=== PATIENT | female | born 1965 | race Caucasian/White ===

== ENCOUNTER 2020-04-20 07:42 | Day surgery (SDC) | payer BC ==
[2020-04-14 16:55] LABS: BASOPHILS % (AUTO) 0.4 % (0-1); EOSINOPHILS # (AUTO) 0.2 X10'3 (0-0.9); EOSINOPHILS % (AUTO) 2.2 % (0-6); LYMPHOCYTES # (AUTO) 2.4 X10'3 (1.1-4.8); MEAN CORPUSCULAR HEMOGLOBIN 29.2 PG (27.0-31.0); MEAN CORPUSCULAR HGB CONC 33.7 g/dL (33.0-36.5); MEAN CORPUSCULAR VOLUME 86.5 FL (78-98); MEAN PLATELET VOLUME 8.4 FL (7.4-10.4); MONOCYTES # (AUTO) 0.7 X10'3 (0-0.9); MONOCYTES % (AUTO) 6.8 % (2-12); NEUTROPHILS # (AUTO) 6.4 X10'3 (1.8-7.7); NEUTROPHILS % (AUTO) 65.6 % (42-75); PRE OP HEMATOCRIT 42.8 % (35.0-45.0); PRE OP HEMOGLOBIN 14.5 g/dL (12.0-16.0); PRE OP PLATELET COUNT 294 X10'3 (140-440); RED BLOOD COUNT 4.95 X10'6 (4.20-5.60); RED CELL DISTRIBUTION WIDTH 13.2 % (11.5-14.5)
[2020-04-14 17:05] LABS: PRE OP PROTIME 10.7 SECONDS (9.0-12.0)
[2020-04-14 17:15] LABS: ALBUMIN 3.8 G/DL (3.4-5.0); ALKALINE PHOSPHATASE 102 IU/L (46-116); BLOOD UREA NITROGEN 19 MG/DL (7-18); BUN/CREATININE RATIO 24.7 (6.6-38.0); CHLORIDE 103 MMOL/L (99-107); CREATININE 0.77 MG/DL (0.40-0.90); PRE OP ALT 31 U/L (30-65); PRE OP ANION GAP 9 (8-16); PRE OP AST 21 U/L (10-37); PRE OP BILIRUB, TOTAL 0.3 MG/DL (0.0-1.0); PRE OP GLUCOSE 113 MG/DL (70-104); PRE OP POTASSIUM 3.9 MMOL/L (3.4-5.1); PRE OP SODIUM 141 MMOL/L (135-145); TOTAL CARBON DIOXIDE 29.5 MMOL/L (24-32); TOTAL PROTEIN 7.8 G/DL (6.4-8.2); eGFR 78 ML/MIN
[~2020-04-20] VITALS: Ht 166.4 cm; Wt 94.0 kg
[2020-04-20] VITALS (18 sets, daily range): BP systolic 93–151; BP diastolic 54–96
[~2020-04-20 07:42] MED LIST: ESTR0.5T28 PO; HYDROmorphone 1 mg/ml syringe IV PRN; HYDROmorphone inj. 0.5 MG/0.5 ML DISP.SYRIN IV PRN; IRBE1TAB31 PO; LEVO88TA7 PO; acetaminophen 325mg tablet PO ONE; acetaminophen 325mg tablet PO PRN; bisacodyl 10mg suppository rectal RC PRN; ceFAZolin 2gm in dextrose, iso 50 ML IV ONE; celeCOXIB 100mg capsule PO ONE; diphenhydrAMINE 25mg capsule PO PRN; famotidine 20mg tablet PO ONE; gabapentin 300mg capsule PO ONE; magnesium hydroxide 30ml (MOM) UD suspension PO PRN; metoclopramide 5 mg/ml inj IV ONE; ondansetron/PF 4mg/2ml inj IV PRN; oxyCODONE SR 10mg (sust. release) tab -2 tabs (20mg) PO ONE; oxyCODONE/APAP 10/325mg tablet PO PRN; ringers solution, lacted 1,000 ML IV SCH; scopolamine 1.5mg patch.TD72 TD ONE; tranexamic acid 1gm/0.7% sal. 100 ML IV ONE; vancomycin 1,500 MG in NS 300ml IV soln IV ONE
[2020-04-20] MEDS: gabapentin 300mg capsule PO SCH ×3 (08:00→22:35)
[2020-04-20] MEDS: multivitamins, therapeutics tablet PO SCH (08:00)
[2020-04-20] MEDS: levoTHYROXINE 88mcg tablet PO SCH (08:00)
[2020-04-20] MEDS: ascorbic acid 500mg tablet PO SCH ×2 (08:00→22:35)
[2020-04-20] MEDS: aspirin 325mg tablet PO SCH (08:30)
[2020-04-20] MEDS ORDERED: ROPIVAcaine inj 250 MG, ketorolac trometh inj. 30 MG, CloNIDine/PF inj 80 MCG, epiNEPHr... IU ONE ×5 (10:45)
[2020-04-20] MEDS ORDERED: ROPIVAcaine inj 250 MG, ketorolac tromethamine inj. 30 MG, CloNIDine/PF inj 80 MCG, epi... IU ONE ×5 (10:45)
[2020-04-20] MEDS ORDERED: MIDAZolam 1mg/ml 10ml vial ONE (11:09)
[2020-04-20] MEDS ORDERED: sevoflurane 250ml liquid IH ONE (11:17)
[2020-04-20] MEDS ORDERED: propofol inj 20 ML IV ONE ×2 (11:34)
[2020-04-20] MEDS ORDERED: vancomycin 1,000mg inj ONE (11:52)
[2020-04-20] MEDS ORDERED: morphine 2 MG/ML inj. syringe IV PRN (12:10)
[2020-04-20] MEDS ORDERED: morphine 4 MG/ML inj SYRINge IV PRN (12:10)
[2020-04-20] MEDS ORDERED: meperidine/PF 25mg/ml syringe IV PRN ×3 (12:10)
[2020-04-20] MEDS ORDERED: proCHLORperazine 10 MG/2 ml inj IV PRN (12:10)
[2020-04-20] MEDS ORDERED: ondansetron/PF 4mg/2ml inj IV PRN (12:10)
[2020-04-20] MEDS ORDERED: ringers solution, lacted 1,000 ML IV SCH (12:10)
[2020-04-20] MEDS ORDERED: ROPIVAcaine 0.2% (10 MG/5 ML) BOLUS INJECTION ADDCANAL PRN (12:10)
[2020-04-20] MEDS ORDERED: ROPIVAcaine 0.5% (5mg/ml) 30ml vial ONE (12:31)
--- NOTE | 2020-04-20 13:03 | NUR ---
Received from OR via BED, accompanied by Anesthesiologist DR PACHECO and report given by Anesthesiologist. PT DROWSY, DENIES PAIN, LEFT KNEE W/DRSG, ICE PACK, LEG WRAP, FLORY DRAIN CDI. BLANKET WARMER APPLIED FOR TEMP 35.9, PT NAUSEATED 4 MG ZOFRAN GIVEN. Addendum: 04/20/20 at 1342 by Jesenia Christina RN Amended: Links added.
[2020-04-20] MEDS: ROPIVAcaine 0.2%/PF PUMP/bolus 550 ML ADDCANAL SCH ×4 (13:56→22:40)
--- NOTE | 2020-04-20 14:23 | NUR ---
Report called to receiving nurse. Transferred via BED BY JEANNIE, 1 BAG OF Belongings SENT W/PT TO ROOM 346B. RECEIVING RN NOTIFIED OF PTS ARRIVAL. Special Issues communicated to receiving nurse. YES. Addendum: 04/20/20 at 1433 by Jesenia Christina RN Amended: Links added.
[2020-04-20] MEDS ORDERED: cefazolin/dext.iso 2gm/100ml 100 ML IV SCH (16:00)
[2020-04-20] MEDS ORDERED: tranexamic acid 1gm/0.7% sal. 100 ML IV ONE (16:10)
[2020-04-20] MEDS: potassium cl 20mEq in 1/2 NS 1,000 ML IV SCH ×3 (16:33→22:45)
--- NOTE | 2020-04-20 17:39 | NUR ---
Patient became nauseous after Dilaudid and requesting not to have it anymore. She told me that she likes [place] instead. I called Dr. Purnima Olsen about this, received order for [place] PRN (see eMAR)
[2020-04-20] MEDS ORDERED: HYDROcodone/acetaminophen 5mg/325mg tablet PO PRN ×2 (17:40→18:40)
[2020-04-20] MEDS ORDERED: HYDROcodone/acetaminophen 10/325mg tab PO PRN (17:40)
--- NOTE | 2020-04-20 17:42 | NUR ---
I called pharmacist to let them know that patient's bolus device for OnQ was not working when patient used it even though it worked previously as per patient report. Pharmacist said they will have to make another one
[2020-04-20] MEDS: ceFAZolin 2gm in dextrose, iso 50 ML IV SCH (17:52)
--- NOTE | 2020-04-20 18:27 | NUR ---
Problems reprioritized. Patient report given, questions answered & plan of care reviewed with Asa PIERCE.
--- NOTE | 2020-04-20 18:34 | NUR ---
unclamped On Q - running at 8. will attempt the bolus after pressure is released
[2020-04-20] MEDS: HYDROcodone/acetaminophen 10/325mg tab PO PRN (20:38)
[2020-04-20] MEDS ORDERED: sennosides 8.6mg tablet PO SCH (21:00)
--- NOTE | 2020-04-20 21:25 | NUR ---
bolus on OnQ is now working. norco given for pain. will continue to assess for pain needs
[2020-04-20] MEDS ORDERED: VANCOMYCIN 1,500MG inj. 1,500 MG in normal saline 500ml IV soln 500 ML IV SCH (22:00)
--- NOTE | 2020-04-20 22:28 | NUR ---
ambulated to with one assist. tolerated well. pain controlled
[2020-04-21] MEDS: HYDROcodone/acetaminophen 10/325mg tab PO PRN ×3 (00:36→08:49)
[2020-04-21] MEDS: ceFAZolin 2gm in dextrose, iso 50 ML IV SCH (01:29)
[2020-04-21 04:30] VITALS: BP 117/69
[2020-04-21 06:10] LABS: BASOPHILS % (AUTO) 0.3 % (0-1); EOSINOPHILS # (AUTO) 0.1 X10'3 (0-0.9); EOSINOPHILS % (AUTO) 0.5 % (0-6); HEMATOCRIT 33.5 % (35.0-45.0); HEMOGLOBIN 11.4 g/dl (12.0-16.0); LYMPHOCYTES # (AUTO) 1.6 X10'3 (1.1-4.8); LYMPHOCYTES % (AUTO) 11.9 % (21-51); MEAN CORPUSCULAR HEMOGLOBIN 29.5 PG (27.0-31.0); MEAN CORPUSCULAR HGB CONC 33.9 g/dL (33.0-36.5); MEAN PLATELET VOLUME 8.4 FL (7.4-10.4); MONOCYTES % (AUTO) 7.2 % (2-12); NEUTROPHILS # (AUTO) 10.7 X10'3 (1.8-7.7); NEUTROPHILS % (AUTO) 80.1 % (42-75); PLATELET COUNT 233 X10'3 (140-440); RED BLOOD COUNT 3.85 X10'6 (4.20-5.60); WHITE BLOOD COUNT 13.4 X10'3 (4.5-11.0)
[2020-04-21] MEDS ORDERED: ASPI-1 PO (06:10)
--- NOTE | 2020-04-21 06:22 | NUR ---
reported to days. noted pt resting w/o distress. waiting for PT. anticipate discharge today. pt request percocet instead of norco.
[2020-04-21 06:30] LABS: ANION GAP 8 (8-16); CHLORIDE 104 MMOL/L (99-107); POTASSIUM 4.1 MMOL/L (3.5-5.1); SODIUM 137 MMOL/L (135-145); TOTAL CARBON DIOXIDE 25.5 MMOL/L (24-32)
--- NOTE | 2020-04-21 06:34 | NUR ---
Patient in room [facility] 346. I have received report from XENA PIERCE and had the opportunity to ask questions and assume patient care.
[2020-04-21] MEDS: potassium cl 20mEq in 1/2 NS 1,000 ML IV SCH (06:45)
[2020-04-21 08:00] VITALS: BP 147/57
[2020-04-21] MEDS ORDERED: losartan 50mg tablet PO SCH (08:00)
[2020-04-21] MEDS ORDERED: HYDROchlorothiazide 12.5mg capsule PO SCH (08:00)
[2020-04-21] MEDS: ascorbic acid 500mg tablet PO SCH (08:47)
[2020-04-21] MEDS: levoTHYROXINE 88mcg tablet PO SCH (08:48)
[2020-04-21] MEDS: multivitamins, therapeutics tablet PO SCH (08:48)
[2020-04-21] MEDS: gabapentin 300mg capsule PO SCH (08:48)
[2020-04-21] MEDS: aspirin 325mg tablet PO SCH (08:48)
[2020-04-21] MEDS: ROPIVAcaine 0.2%/PF PUMP/bolus 550 ML ADDCANAL SCH (10:30)
[2020-04-21 11:00] VITALS: BP 126/62
--- NOTE | 2020-04-21 11:11 | NUR ---
PATIENT DISCHARGE HOME TODAY AFTER EDUCATIONAL INFORMATION. PATIENT HAD IV TAKEN OUT AT THIS TIME AND CANULA WHOLE AND INTACT AT THAT TIME. PATIENT SHOWED VERBAL UNDERSTANDING OF DISCHARGE TEACHING ABOUT ONQ, FLORY DRESSING AND FOLLOW UP MEDICATIONS. PATIENT LEFT IN PRIVATE VEHICLE AT DISCHARGE.
--- NOTE | 2020-04-21 14:27 | NUR ---
CASE MANAGEMENT DISCHARGE FOLLOW UP: T/c to pt, no answer, left message requesting callback. Addendum: 04/21/20 at 1439 by Renetta Peoples RN [id number] Received return call from pt. States that she is feeling okay, pain level increases with activity but becomes tolerable with rest. has all of her medications from MD, does not have any questions. Denies CP, fever, SOB/difficulty breathing. Verbalizes understanding of symptoms requiring notification of MD/return to ED/call 911. dressing is CDI. Following d/c instructions per MD. States no further questions, concerns. [facility] will follow up with Dr Olsen as directed.
[2020-04-21] MEDS ORDERED: celeCOXIB 100mg capsule PO SCH (20:00)
== END 2020-04-21 11:17 | disposition home or self-care (01) ==
LOC: PAS 07:42 → SUR 3N 14:53 → PAS 04-21 11:17
PROVIDERS: ATTEND Orthopaedic Surgery
DX: M17.12 Unilateral primary osteoarthritis, left knee (principal); M25.562 Pain in left knee; I10 Essential (primary) hypertension; Z87.891 Personal history of nicotine dependence; E66.9 Obesity, unspecified
CPT/HCPCS: 27447; 36415; 73560; 80051; 80053; 82948; 84443; 85025; 85610; 85730; 86885; 86900; 86901; 87081; 87635; 97110; 97161; 97530; A6454; C1713; C1776; J1170; J2250; J2405; J2704; J2765; J2795; J3370; J7040; J7120; A4215; A6449; A7000; G0378; J3480